=== PATIENT | female | born 1990 | race Caucasian/White ===

== ENCOUNTER 2025-01-06 23:43 | Emergency (ER) | payer MEDICAID ==
[~2025-01-06] VITALS: Ht 167.6 cm; Wt 96.0 kg
[2025-01-06 23:45] VITALS: TEMP 36.9; O2SAT 98
[2025-01-07] MEDS: ACETAMINOPHEN 325MG TABLET PO ONE (00:14)
[2025-01-07] MEDS: LIDOCAINE 5% PATCH TOP SCH (00:15)
[2025-01-07 00:44] LABS: BASOPHILS % 0.2 % (0.0-2.0); EOSINOPHILS % 1.2 % (0.0-5.0); HEMATOCRIT. 40.8 % (36.0-48.0); HEMOGLOBIN. 13.7 g/dL (12.0-16.0); LYMPHOCYTES % 24.1 % (20.0-50.0); MEAN CORPUSCULAR HEMOGLOBIN 30.5 pg (28.0-32.0); MEAN CORPUSCULAR HGB CONC 33.6 g/dL (31.0-37.0); MEAN PLATELET VOLUME 7.3 fl (7.4-10.4); MONOCYTES % 5.5 % (2.0-8.0); PLATELET 297 x1000/uL (130-400); RED BLOOD CELL COUNT 4.48 mill/uL (4.2-5.4); RED CELL DISTRIBUTION WIDTH 13.1 % (11.6-14.6); WHITE BLOOD COUNT 9.3 x1000/uL (4.5-11.0)
[2025-01-07 00:50] LABS: CHLORIDE 105 mEq/L (98-107); POTASSIUM 3.5 mEq/L (3.5-5.1); SODIUM 141 mEq/L (136-145)
[2025-01-07 00:51] LABS: CARBON DIOXIDE 30 mEq/L (21-32)
[2025-01-07 00:52] LABS: CALCIUM 9.9 mg/dL (8.7-10.4)
[2025-01-07 00:56] LABS: CREATININE 0.6 mg/dL (0.6-1.0); GLUCOSE 134 mg/dL (70-105); UREA NITROGEN BLOOD 13 mg/dL (9-23)
[2025-01-07] MEDS: SODIUM CHLORIDE 0.9% 1,000 ML IV ONE (00:56)
[2025-01-07 01:24] LABS: HCG SCREEN NEGATIVE
[2025-01-07] MEDS: KETOROLAC 15MG/ML VIAL IV NR (03:00)
[2025-01-07] MEDS ORDERED: BACL-141 MT (05:09)
[2025-01-07] MEDS ORDERED: IBUP-2029 MT (05:09)
[2025-01-07 05:25] VITALS: BP 120/83; PULSE 90; RESP 14; O2SAT 96
[2025-01-07] MEDS ORDERED: IOHEXOL-300 100 ML BOTTLE ONE ×2 (07:25→16:18)
== END 2025-01-07 05:37 | disposition home or self-care (01) ==
LOC: ER 23:43
DX: S13.4XXA Sprain of ligaments of cervical spine, initial encounter (principal); S30.1XXA Contusion of abdominal wall, initial encounter; V89.2XXA Person injured in unspecified motor-vehicle accident, traffic, initial encounter; Y93.89 Activity, other specified; Y92.89 Other specified places as the place of occurrence of the external cause; Y99.8 Other external cause status
CPT/HCPCS: 99285; 36415; 74177; 96374; 96361; 80048; 84703; 85025; 73030; J1885; Q9967; J7030